=== PATIENT | male | born 1960 | race Caucasian/White ===

== ENCOUNTER 2017-08-25 17:25 | Observation (INO) | payer OTHER ==
[~2017-08-25] VITALS: Ht 182.9 cm; Wt 99.8 kg
[~2017-08-25 17:25] MED LIST: NOHOMEMEDICATIONS; PROTONIX40 MG PO
[2017-08-25 17:33] VITALS: BP 149/84
[2017-08-25] MEDS ORDERED: CIPRO500 MG PO (17:37)
[2017-08-25 17:57] LABS: CALCIUM 8.7 mg/dL (8.5-10.1); CREATININE 1.2 mg/dL (0.6-1.3)
[2017-08-25 17:59] LABS: ABSOLUTE BASOPHILS 0.1 thou/uL (0.0-0.2); ABSOLUTE EOSINOPHILS 0.1 thou/uL (0.0-0.7); ABSOLUTE LYMPHOCYTES 2.1 thou/uL (0.8-5.3); ABSOLUTE MONOCYTES 0.7 thou/uL (0.0-1.2); ABSOLUTE NEUTROPHILS 6.7 thou/uL (1.6-8.1); APTT 26.4 Seconds (25.0-31.3); BASOPHILS 0.6 %; EOSINOPHILS 1.3 %; HEMATOCRIT 45.9 % (42.0-52.0); HEMOGLOBIN 15.9 gm/dL (14.0-18.0); INR 1.1; LYMPHOCYTES 22.1 %; MCH 32.9 pg (26.0-34.0); MCHC 34.7 g/dL (28.0-37.0); MCV 94.8 fL (80.0-100.0); MONOCYTES 7.3 %; MPV 8.8 fl. (7.2-11.1); NUCLEATED RBCS 0 /100WBC; PLATELET COUNT* 211 thou/uL (150-400); POLYS 68.7 %; PROTIME 10.4 Seconds (9.20-11.50); RBC 4.84 mil/uL (4.50-6.00); RDW-CV 12.7 % (10.5-14.5); WBC 9.7 thou/uL (4.0-11.0)
[2017-08-25 18:02] LABS: TOTAL BILIRUBIN 0.6 mg/dL (<0.1-1.0); TOTAL PROTEIN 7.6 g/dL (6.4-8.2)
[2017-08-25 18:26] LABS: SGOT 19.2 U/L (15-37)
[2017-08-25 21:00] VITALS: BP 147/813
[2017-08-25 21:02] VITALS: BP 127/65
[2017-08-25 21:20] VITALS: BP 120/79
[2017-08-25 23:41] VITALS: BP 127/77
[2017-08-26] VITALS (9 sets, daily range): BP systolic 118–144; BP diastolic 68–84
--- NOTE | 2017-08-26 04:15 | NUR ---
ASSUMED PT CARE AT 1930, PT IS A&OX4, PT IS CLINT NSR ON THE MONITOR, ON RA SATTING MID TO HIGH 90'S, PT IS UP AD WILL IN HIS ROOM, APPEARS TO BE STABLE ON HIS FEET. ADMISSION ASSESSMENT COMPLETED CHARTED, NIH COMPLETED CHARTED. BED SIDE SWALLOW WAS COMPLETED WITH NO ISSUES. BED IN LOW POSITION, CALL LIGHT IN REACH, HOURLY ROUNDING COMPLETED FOR PT SAFETY. PT DENIES ANY PAIN OR NEEDS AT THIS TTIME.
[2017-08-26 05:12] LABS: HEMATOCRIT 42.8 % (42.0-52.0); HEMOGLOBIN 14.8 gm/dL (14.0-18.0); MCH 32.6 pg (26.0-34.0); MCHC 34.6 g/dL (28.0-37.0); MCV 94.3 fL (80.0-100.0); MPV 8.8 fl. (7.2-11.1); RBC 4.54 mil/uL (4.50-6.00); RDW-CV 12.6 % (10.5-14.5); WBC 8.8 thou/uL (4.0-11.0)
[2017-08-26 05:36] LABS: CALCIUM 8.2 mg/dL (8.5-10.1); POTASSIUM 4.2 mmol/L (3.5-5.1)
[2017-08-26 05:52] LABS: CHOLESTEROL 142 mg/dL (<200); HDL CHOLESTEROL 32 mg/dL (>40); LDL CHOLESTEROL 83 mg/dL (<100); TC:HDL 4.4 Ratio (Not establshd); TRIGLYCERIDE 137 mg/dL (<150); VLDL 27 mg/dL (<40)
[2017-08-26 06:05] LABS: SERUM ASSESSMENT Clear
--- NOTE | 2017-08-26 13:53 | EKG ---
[place] [address] ELECTROCARDIOGRAM REPORT Name: CHRIS VIVAR Room: [address] M.R.#: [id number] Admission: 08/25/17 Attend Phys: Chau Loyola, Discharge: Date of : 58 Report #: [id number] THIS REPORT FOR: //name// [facility] ED Test Date: 2017-08-25 Test Time: 18:30:23 Pat Name: CHRIS VIVAR Department: Room: [facility] Gender: M [employer] Deputy Director: : 1960 Requested By: Rocio Rivero Order Number: [id number] MD: Audie Benjamin Measurements Intervals Spangle Rate: 76 P: 32 CO: 154 QRS: -31 QRSD: 96 T: 32 QT: 375 QTc: 422 Interpretive Statements Sinus rhythm Probable left atrial enlargement Left axis deviation Abnormal R-wave progression, early transition No previous ECG available for comparison Electronically Signed On 08-26-2017 13:53:08 [employer]GE [employer] by Audie Benjamin [email or web address] <ELECTRONICALLY SIGNED> By: Audie Benjamin MD, [facility] 08/26/17 1353 1830 183 Audie Benjamin MD, FACC /EPI
--- NOTE | 2017-08-26 19:02 | NUR ---
PATINET RESTING IN CHAIR IN ROOM . UP AD WILL IN HALLWAYS AND Q4H NIH SCALE RESULTS OF 0. VITAL SIGNS STABLE ANDPAITNET IN NOAPPARENT DISTRESS AT THIS TIME. ECHO TOMORROW AND PROBABLE DISCHARGE TO HOME. HOURLY ROUNDING COMPLETED FOR PATINET SAFETY.
[2017-08-27] VITALS (7 sets, daily range): BP systolic 114–142; BP diastolic 67–78
--- NOTE | 2017-08-27 04:19 | NUR ---
ASSUMED PT CARE AT 1930, PT IS A&OX4 PT DENIES ANY PAIN OR NEEDS AT THIS TIME. PT STATES HE IS VERY BORED AND IS READY TO GO HOME. PT IS TRACING NSR ON THE MONTIOR, ON RA SATTING MID TO HIGH 90'S. NIH AND NEURO CHECKS COMPLETED CHARTED, PT SLEPT WELL THROUGHOUT THE NIGHT. PT IS UP AD WILL IN HIS ROOM AND STABLE ON HIS FEET. BED IN LOW POSITION, CALL LIGHT IN REACH. HOURLY ROUNDING COMPLETED FOR PT SAFETY,
--- NOTE | 2017-08-27 10:42 | NUR ---
PATINET RESTING IN BED. UP IN HALLWAYS AD WILL. NIH SCORES OF 0. J[facility]ON HAS NOT EXPERIENCED ANY FURTHER EPISODES OF DYSPHAGIA. VITAL SIGNS ARE STABLE AND PATIENT IN NO APPARENT DISTRESS AT THIS TIME. PATINET TO HAEV ECHOCARDIOGRAM TODAY TO ASSESS FOR HEART FUNCTION. EXPECTED DISCHARGE TODAY AFTER COMPLETION OF TESTING. HOURLY ROUNDING BEING COMPLETED FOR PATIENT SAFETY ADN PATIENT IN NO APPARENT DISTRESS AT THIS TIME. WILL CONTINUE TO MONITOR.
[2017-08-27] MEDS ORDERED: VITAMIN B-1100 M1 PO (11:52)
[2017-08-27] MEDS ORDERED: ADULT LOW DOSE81 MG PO (11:52)
[2017-08-27] MEDS ORDERED: FISH OIL 1,001000 M2 PO (11:52)
--- NOTE | 2017-08-27 13:58 | 2DMMODE ---
[place] [address] 2 D/M-MODE ECHOCARDIOGRAM Name: CHRIS VIVAR Jose Room: [address] Carina Pickering#: [id number] Admission: 08/25/17 Attend Phys: Chau Finn Discharge: Date of : 58 Date of Service: 08/27/17 1358 Report #: [id number] THIS REPORT FOR: //name// APPROVED REPORT Study performed: 08/27/2017 12:12:08 EXAM: Comprehensive 2D, Doppler, and color-flow Echocardiogram Patient Location: In-Patient Room #: 219 Status: routine BSA: 2.24 HR: 58 bpm BP: 125/70 mmHg Rhythm: NSR Other Information Study Quality: Good Indications CVA/TIA Echo Enhancing Agent Indication: Rule out Shunt Agent(s) / Amount(s) Used: Agitated Saline 10 cc 2D Dimensions LVEF(%): 75.62 (>50%) IVSd: 13.83 (7-11mm) LVOT Diam: 23.08 (18-24mm) LVDd: 51.92 mm PWd: 8.86 (7-11mm) Ascending Ao: 36.35 (22-36mm) LVDs: 28.73 (25-40mm) Aortic Root: 33.96 mm Trevino's LVEF: 75.62 % Volumes Left Atrial Volume (Systole) LA ESV Index: 23.20 mL/m2 Aortic Valve AoV Peak Ismael.: 1.13 m/s AO Peak Gr.: 5.09 mmHg LVOT Max P.45 mmHg AO Mean Gr.: 2.68 mmHg LVOT Mean P.36 mmHg LVOT Max V: 0.93 m/s AO V2 VTI: 22.45 cm LVOT Mean V: 0.52 m/[place] [address] 2 D/M-MODE ECHOCARDIOGRAM Name: CHRIS VIVAR Room: [address] MJessicaRJessica#: [id number] Admission: 08/25/17 Attend Phys: Chau Finn Discharge: Date of : 58 Date of Service: 08/27/17 1358 Report #: [id number] LULI (VTI): 3.93 cm2 LVOT V1 VTI: 21.07 cm Mitral Valve E/A Ratio: 0.81 MV Decel. Time: 165.76 ms MV E Max Ismael.: 0.57 m/s MV PHT: 48.07 ms MVA (PHT): 4.58 cm2 TDI E/Lateral E': 4.38 E/Medial E': 7.13 Medial E' Ismael.: 0.08 m/s Lateral E' Ismael.: 0.13 m/s Pulmonary Valve PV Peak Ismael.: 0.96 m/s PV Peak Gr.: 3.71 mmHg Left Ventricle The left ventricle is normal size. There is normal LV segmental wall motion. There is normal left ventricular wall thickness. Left ventricular systolic function is normal. The left ventricular ejection fraction is within the normal range. LVEF is 55-60%. The left ventricular diastolic function is normal. Right Ventricle The right ventricle is normal size. The right ventricular systolic function is normal. Atria The left atrium size is normal. Interatrial septum is intact without evidence of ASD or PFO. The right atrium size is normal. Aortic Valve The aortic valve is normal in structure. No aortic regurgitation is present. There is no aortic valvular stenosis. Mitral Valve The mitral valve is normal in structure. Trace mitral regurgitation. No evidence of mitral valve stenosis. Tricuspid Valve The tricuspid valve is normal in structure. Unable to assess PA pressure. Trace tricuspid regurgitation. Pulmonic Valve The pulmonary valve is normal in structure[place] [address] 2 D/M-MODE ECHOCARDIOGRAM Name: CHRIS VIVAR Room: [address] M.RJessica#: [id number] Admission: 08/25/17 Attend Phys: Chau Finn Discharge: Date of : 58 Date of Service: 08/27/17 1358 Report #: [id number] regurgitation. Great Vessels The aortic root is normal in size. IVC is normal in size and collapses with >50% inspiration Pericardium There is no pericardial effusion. <Conclusion> LVEF is 55-60%. Interatrial septum is intact without evidence of ASD or PFO. <ELECTRONICALLY SIGNED> By: Femi Adams MD, FACC 08/27/17 1358 1358 1358 Feim Adams MD, FACC /INF
--- NOTE | 2017-08-27 14:19 | NUR ---
ORDER RECEIVED TO DISCHARGE [facility] HOME TO SELF CARE. MED REC, MEDIC ATION EDUCATION, STROKE EDUCATION, AND NEED FOR FOLLOW UP APPOINTMENTS WITH PRIMARY AND NEUROLOGY COVERED AND STATED UNDERSTOOD BY JOHNSON. IV AND TELEMTRY PACK REMOMVED. NOVANETS BELONGONGS GATHERED AND TAKEN BY JOHNSON WHO CHOSE TO AMBULATE TO AWAITNG CAR WITH SPOUSE PRESENT. HOURLY ROUNDING COMPLETED FOR PATIENT SAFETY AND [place] PARTICIPATED IN PLAN OF CARE. DISCHARGE TIME OF 14:15.
--- NOTE | 2017-08-29 07:27 | CON ---
[address] [address] CONSULTATION Name: CHRIS VIVAR Room: [address] Carina Pickering#: [id number] Admission: 08/25/17 Attend Phys: Chau Loyola, Discharge: 08/27/17 Date of : 58 Report #: [id number] THIS REPORT FOR: //name// CC: Jose Daniel Loyola DATE OF SERVICE: 08/26/2017 HISTORY OF PRESENT ILLNESS: This is a 56-year-old male patient who was admitted after an episode of speech difficulty. It came spontaneously. He was able to comprehend things, but was not able to pronounce the exact words. He does not know what brought it on. There was no associated headache or focal neurological deficit. He spontaneously recovered from it. He never had this kind of episode before. Review of system indicate that his PSA was high, so underwent prostate biopsy. He works as a industrial maintenance millwright and does not have much other history. He did have knee surgery in the past, but I carried out 14-point review of systems and that appear unremarkable. PAST MEDICAL HISTORY: Negative for this kind of episode. FAMILY HISTORY: Positive for myocardial infarctions in early ages and rather the patient had an appointment with automobile detailer to check for that. SOCIAL HISTORY: He smokes cigar and he drinks about 750 mL of hard liquor over a period of 3 days on the weekends and typically translate to 2 drinks every night according to the patient. PHYSICAL EXAMINATION: The patient's examinations indicate the patient is alert, responsive, able to follow simple and complex command. His speech, concentration, fund of knowledge and memory is at his baseline. Cranial nerve examination 212 is unremarkable. He has a symmetrical strength, sensation, reflexes and tone in all 4 extremities. There is no papilledema. There is no cerebellar sign. There is no carotid bruit. He is reasonably well-developed, well-built individual, does not have any dysmorphic features of eyes, ears and face. Pulses are palpable. He has no edema, cyanosis or jaundice. His cardiac examination shows unremarkable heart sounds. He has no thyroid mass. Vital signs indicate a blood pressure 118/68, respirations 19, pulse is 60, temperature is 98.3. LABORATORY DATA: Indicate a normal WBC count. His LDL is 83 and his HDL is 72. He did have a CT scan of the head and that was unremarkable and he indicates that he does not want to have anything with contrast. IMPRESSION: The patient's clinical presentation is consistent with transient ischemic attack. He does not want any contrast and therefore we will do the MRI. If his workup shows some abnormality, then he needs to [place] [address] CONSULTATION Name: CHRIS VIVAR Jose Room: [address] Carina Pickering#: [id number] Admission: 08/25/17 Attend Phys: Chau Loyola, Discharge: 08/27/17 Date of : 58 Report #: [id number] that. If workup is unremarkable, then he needs to work on his risk factor by doing exercise to increase his HDL, losing weight, eating healthy, being on aspirin and statin. RECOMMENDATIONS: 1. MRI of the brain. 2. Echocardiogram. 3. He should have some imaging study today and we can do a carotid Doppler, but I think the best will be to go ahead and do an MRI of the brain and MRA today. I will start him on aspirin. 4. We will do some more blood workup. 5. I suggested that he cut back his alcohol intake and we will put him on some thiamine. We did talk about healthy lifestyle including stopping smoking altogether and he understands that. Thank you very much for this referral. <ELECTRONICALLY SIGNED> By: Brian Rivas MD 08/29/17 0727 0924 [id number] Rivas MD /nt
--- NOTE | 2017-08-29 07:27 | CON ---
[address] [address] CONSULTATION Name: CHRIS VIVAR Room: [address] Carina Pickering#: [id number] Admission: 08/25/17 Attend Phys: Chau Loyola, Discharge: 08/27/17 Date of : 58 Report #: [id number] THIS REPORT FOR: //name// CC: Jose Daniel Loyola DATE OF SERVICE: 08/27/2017 HISTORY OF PRESENT ILLNESS: This is a 56-year-old male patient who was seen by me earlier today for a followup. This patient was doing well. He had no more speech difficulty. In fact, he was feeling back to his baseline. He had no headache associated with it. I examined him and he was alert, responsive, able to follow simple and complex command. His cranial nerve examination was unremarkable. His neuromuscular examination was also unremarkable. Cardiac examination showed unremarkable heart sound. No respiratory difficulty was noticed. His blood pressure was 116/67, respiration was 16, pulse is 64, temperature is 98. His most of the workup so far is unremarkable. His HDL and LDL were low. I discussed with the patient that his workup is unremarkable and he needs to mainly concentrate on controlling his vascular risk factors and I talked to him about that and he needs to work with his admitting doctor and primary. As an outpatient, he should also have some further workup like sed rate, etc. He is on aspirin and he needs to take care of his cholesterol and he needs to work with his primary. He is already on statin and that needs to be managed by the primary and admitting. Thank you very much for this referral. <ELECTRONICALLY SIGNED> By: Brian Rivas MD 08/29/17 0727 1537 [id number] Rivas MD /nt
== END 2017-08-27 14:20 | disposition home or self-care (01) ==
LOC: M.ERS 17:25 → M.TBA-ER 18:44 → M.2W 18:44
PROVIDERS: Personal Emergency Response Attendant; ADMIT Family Medicine
DX: G45.9 Transient cerebral ischemic attack, unspecified (principal); K21.9 Gastro-esophageal reflux disease without esophagitis; Z87.891 Personal history of nicotine dependence